=== PATIENT | female | born 1940 | race Caucasian/White ===

== ENCOUNTER 2017-09-20 17:12 | Emergency (ER) | payer MEDICARE, OTHER ==
[~2017-09-20] VITALS: Ht 162.6 cm; Wt 86.2 kg
[~2017-09-20 17:12] MED LIST: ALENDRONATE SOD70 MG PO; ASPIRIN EC81 MG PO; ASPIRIN325 MG PO; CALCIUM 500 +1 EAC2 PO; CALCIUM 600 +1 EACH PO; FLAGYL500 MG PO; K-PHOS ORIGINAL1 EA PO; LEVAQUIN500 MG PO; LISINOPRIL-HCT1 EACH PO; LOVENOX120 MG SUB-Q; MAGOX 400400 MG PO; METOPROLOL TAR100 MG PO; OCUVITE SOFTGE1 EACH PO; PERCOCET 7.5-31 EACH PO; VITAMIN D2000 UNIT PO; WARFARIN SODIUM5 MG PO; ZOFRAN ODT8 MG PO; ZOFRAN4 MG PO
[2017-09-20] MEDS ORDERED: FOSAMAX70 MG PO (17:23)
[2017-09-20] MEDS ORDERED: WARFARIN SODIUM5 MG PO (17:23)
[2017-09-20] MEDS ORDERED: BACTRIM DS TAB1 EACH PO (18:21)
[2017-09-20] MEDS ORDERED: DOXYCYCLINE HY100 MG PO (18:21)
== END 2017-09-20 18:42 | disposition home or self-care (01) ==
LOC: ED 17:12
PROC: 0HQLXZZ Repair Left Lower Leg Skin, External Approach (ICD-10-PCS; principal; 2017-09-20)
DX: S81.812A Laceration without foreign body, left lower leg, initial encounter (principal); S86.112A Strain of other muscle(s) and tendon(s) of posterior muscle group at lower leg level, left leg, initial encounter; I10 Essential (primary) hypertension; M81.0 Age-related osteoporosis without current pathological fracture; Z88.0 Allergy status to penicillin; Z91.041 Radiographic dye allergy status; Z88.5 Allergy status to narcotic agent; Z79.01 Long term (current) use of anticoagulants; Z79.899 Other long term (current) drug therapy; Z23 Encounter for immunization; W45.8XXA Other foreign body or object entering through skin, initial encounter; Y92.099 Unspecified place in other non-institutional residence as the place of occurrence of the external cause
CPT/HCPCS: 12034; 36415; 85610; 90471; 90715; 99283

== ENCOUNTER 2018-02-03 13:46 | Emergency (ER) | payer MEDICARE, OTHER ==
[~2018-02-03] VITALS: Ht 162.6 cm; Wt 86.2 kg
[~2018-02-03 13:46] MED LIST changes: +BACTRIM DS TAB1 EACH PO; +DOXYCYCLINE HY100 MG PO; +FOSAMAX70 MG PO
[2018-02-03] MEDS ORDERED: ONDANSETRON ODT8 MG PO (15:47)
[2018-02-03] MEDS ORDERED: NORCO 5-325 TA1 EACH PO (15:47)
== END 2018-02-03 16:28 | disposition home or self-care (01) ==
LOC: ED 13:46
DX: M79.605 Pain in left leg (principal); I10 Essential (primary) hypertension; M81.0 Age-related osteoporosis without current pathological fracture; Z88.0 Allergy status to penicillin; Z91.041 Radiographic dye allergy status; Z88.5 Allergy status to narcotic agent; Z79.899 Other long term (current) drug therapy; Z79.01 Long term (current) use of anticoagulants
CPT/HCPCS: 73590; 80053; 83735; 85025; 85610; 93971; 99284

== ENCOUNTER 2022-01-19 18:51 | Emergency (ER) | payer MEDICARE, OTHER ==
[~2022-01-19] VITALS: Ht 162.6 cm; Wt 86.2 kg
[~2022-01-19 18:51] MED LIST changes: +DORZOLAMIDE-TIM10 ML OU; +METOPROLOL TART50 MG PO; +NORCO 5-325 TA1 EACH PO; +ONDANSETRON ODT8 MG PO; +ROSUVASTATIN CA10 MG PO
== END 2022-01-20 00:17 | disposition short-term general hospital (02) ==
LOC: ED 18:51
DX: S16.1XXA Strain of muscle, fascia and tendon at neck level, initial encounter (principal); U07.1 COVID-19; I10 Essential (primary) hypertension; Z86.711 Personal history of pulmonary embolism; Z87.891 Personal history of nicotine dependence; Z88.0 Allergy status to penicillin; Z88.5 Allergy status to narcotic agent; Z91.048 Other nonmedicinal substance allergy status; Z79.82 Long term (current) use of aspirin; Z79.899 Other long term (current) drug therapy; Z79.01 Long term (current) use of anticoagulants; W19.XXXA Unspecified fall, initial encounter
CPT/HCPCS: 36415; 70450; 71250; 72125; 73030; 74176; 80053; 85025; 85610; 87502; 96374; 99285-25; C9803; G0480; J0131; J2405; J3430; U0003

== ENCOUNTER 2022-10-08 19:04 | Emergency (ER) | payer MEDICARE, OTHER ==
[~2022-10-08] VITALS: Ht 162.6 cm; Wt 70.3 kg
[2022-10-08] MEDS ORDERED: POTASSIUM CHLO10 MEQ PO (19:42)
[2022-10-08] MEDS ORDERED: ELIQUIS2.5 MG PO (19:43)
[2022-10-08 20:21] VITALS: BP 141/75
--- NOTE | 2022-10-08 21:44 | EKG ---
[facility] [address] [facility] [place] [address] Signed Sinus rhythm with premature atrial complexes Left axis deviation Incomplete right bundle branch block Abnormal ECG No previous ECGs available Confirmed by Lacey Duvall MD () on 10/08/2022 9:44:20 PM Electronically Signed By: LACEY DUVALL MD 10/08/22 [id number] PATIENT NAME: LUPE MEDINA AURELIANO Electrocardiogram DATE OF : 38 PHYSICIAN: LACEY DUVALL MD REPORT #: [id number] REPORT IS CONFIDENTIAL AND NOT TO BE RELEASED WITHOUT AUTHORIZATION
== END 2022-10-08 20:23 | disposition home or self-care (01) ==
LOC: ED 19:04
DX: R06.00 Dyspnea, unspecified (principal); I10 Essential (primary) hypertension; Z87.891 Personal history of nicotine dependence; Z88.0 Allergy status to penicillin; Z91.041 Radiographic dye allergy status; Z88.8 Allergy status to other drugs, medicaments and biological substances; Z88.5 Allergy status to narcotic agent; Z79.899 Other long term (current) drug therapy; Z79.01 Long term (current) use of anticoagulants
CPT/HCPCS: 36415; 71045; 80053; 83880; 84484; 85025; 85379; 85610; 85730; 93005; 93010; 99285-25

== ENCOUNTER 2023-07-11 14:21 | Emergency (ER) | payer OTHER, MEDICARE ==
[~2023-07-11] VITALS: Ht 162.6 cm; Wt 70.3 kg
[~2023-07-11 14:21] MED LIST changes: +ELIQUIS2.5 MG PO; +POTASSIUM CHLO10 MEQ PO
[2023-07-11 15:55] LABS: INFLUENZA B NAA NEGATIVE (NEGATIVE); RESPIRATORY SYNCYTIAL VIR NAA NEGATIVE (NEGATIVE)
[2023-07-11] MEDS ORDERED: LISINOPRIL10 MG PO (17:10)
[2023-07-11] MEDS ORDERED: VENTOLIN HFA18 GM (17:11)
[2023-07-11 17:42] LABS: BASOPHILS 0.1 % (0-2); EOSINOPHILS 0.1 % (0-6); HEMOGLOBIN 12.4 g/dL (12.0-18.0); LYMPHOCYTES 2.4 % (24-44); MCH 28.4 (27-36); MCHC 32.6 g/dl (30-36); MCV 87.1 fl (81-99); MONOCYTES 5.6 % (0-12); NEUTROPHILS 91.8 % (39-80); PLATELET COUNT 195 K/uL (140-440); RBC 4.36 M/ul (4.3-5.7); RDW 15.4 (10.5-15.0)
[2023-07-11] MEDS ORDERED: SODIUM CHLORIDE 0.9% 1,000 ML IV ONE (18:00)
[2023-07-11] MEDS ORDERED: ondansetron HCL 4 MG/2 ML VIAL IV ONE (18:00)
[2023-07-11 18:03] LABS: ALBUMIN 3.6 g/dL (3.4-5.0); ALBUMIN/GLOBULIN RATIO 0.92 (1.1-2.4); ANION GAP 11.9 (7-21); BILIRUBIN, TOTAL 0.7 ng/dL (0.2-1.0); BUN/CREATININE RATIO 20.23 (6.0-28.6); CALCIUM 9.3 mg/dL (8.5-10.1); CREATININE, SERUM 0.84 mg/dL (0.55-1.02); POTASSIUM 3.9 mmol/L (3.5-5.1); PROTEIN, TOTAL 7.5 g/dL (6.4-8.2)
[2023-07-11] MEDS ORDERED: ONDANSETRON 4 MG HOME.PACK SL ONE (19:45)
[2023-07-11] MEDS ORDERED: ACETAMINOPHEN 500 MG TAB PO ONE (19:45)
[2023-07-11] MEDS ORDERED: METOPROLOL TARTRATE 50 MG TAB PO ONE (19:45)
[2023-07-11] MEDS ORDERED: ONDANSETRON ODT8 MG PO (19:48)
[2023-07-11 20:24] VITALS: BP 147/62
== END 2023-07-11 20:25 | disposition home or self-care (01) ==
LOC: ED 14:21
PROVIDERS: Emergency Medicine
DX: B34.9 Viral infection, unspecified (principal); I10 Essential (primary) hypertension; M81.0 Age-related osteoporosis without current pathological fracture; Z86.711 Personal history of pulmonary embolism; Z87.891 Personal history of nicotine dependence; Z79.82 Long term (current) use of aspirin; Z79.01 Long term (current) use of anticoagulants; Z79.899 Other long term (current) drug therapy; Z88.0 Allergy status to penicillin; Z88.5 Allergy status to narcotic agent; Z88.8 Allergy status to other drugs, medicaments and biological substances; Z91.041 Radiographic dye allergy status
CPT/HCPCS: 36415; 71045; 80053; 85025; 87502; 96374; 99284-25; A9270; J2405; J7030; U0002

== ENCOUNTER 2023-10-22 10:12 | Emergency (ER) | payer MEDICARE, OTHER ==
[~2023-10-22] VITALS: Ht 162.6 cm; Wt 658.5 kg
[~2023-10-22 10:12] MED LIST changes: +LISINOPRIL10 MG PO; +VENTOLIN HFA18 GM
[2023-10-22] MEDS ORDERED: GABAPENTIN 300 MG CAP PO ONE (12:45)
[2023-10-22] MEDS ORDERED: ACETAMINOPHEN 500 MG TAB PO ONE (12:45)
[2023-10-22] MEDS ORDERED: CYCLOBENZAPRINE10 MG PO (14:13)
[2023-10-22] MEDS ORDERED: NEURONTIN300 MG PO (14:13)
[2023-10-22 14:25] VITALS: BP 151/86
== END 2023-10-22 14:25 | disposition home or self-care (01) ==
LOC: ED 10:12
DX: M54.2 Cervicalgia (principal); I10 Essential (primary) hypertension; Z87.891 Personal history of nicotine dependence; Z88.0 Allergy status to penicillin; Z91.041 Radiographic dye allergy status; Z88.5 Allergy status to narcotic agent; Z88.8 Allergy status to other drugs, medicaments and biological substances; Z79.82 Long term (current) use of aspirin; Z79.01 Long term (current) use of anticoagulants; Z79.899 Other long term (current) drug therapy
CPT/HCPCS: 72125; A9270

== ENCOUNTER 2024-07-13 20:06 | Emergency (ER) | payer MEDICARE, OTHER ==
[~2024-07-13] VITALS: Ht 162.6 cm; Wt 61.2 kg
[~2024-07-13 20:06] MED LIST changes: +CYCLOBENZAPRINE10 MG PO; +NEURONTIN300 MG PO
[2024-07-13 20:38] LABS: BASOPHILS 0.6 % (0-2); EOSINOPHILS 3.1 % (0-6); HEMATOCRIT 41.3 % (35.0-50.0); HEMOGLOBIN 13.6 g/dL (12.0-18.0); LYMPHOCYTES 24.8 % (24-44); MCH 28.5 (27-36); MCHC 32.8 g/dl (30-36); MCV 86.9 fl (81-99); MONOCYTES 11.8 % (0-12); NEUTROPHILS 59.7 % (39-80); PLATELET COUNT 228 K/uL (140-440); RBC 4.75 M/ul (4.3-5.7)
[2024-07-13 20:54] LABS: ALBUMIN 3.6 g/dL (3.4-5.0); ALBUMIN/GLOBULIN RATIO 0.92 (1.1-2.4); BILIRUBIN, TOTAL 0.3 mg/dL (0.2-1.0); BUN/CREATININE RATIO 22.5 (6.0-28.6); CALCIUM 9.4 mg/dL (8.5-10.1); CREATININE, SERUM 0.8 mg/dL (0.55-1.02); PROTEIN, TOTAL 7.5 g/dL (6.4-8.2)
[2024-07-13 20:55] LABS: INR 1.1 (0.80-1.30); PROTIME 14.2 Sec (11.2-14.2)
[2024-07-13 20:57] LABS: CORONAVIRUS COVID-19 AG NEGATIVE (NEGATIVE); INFLUENZA A AG NEGATIVE (NEGATIVE); INFLUENZA B AG NEGATIVE (NEGATIVE)
[2024-07-13] MEDS ORDERED: ALBUTEROL SULFATE 8 GM HOME.PACK INH ONE (21:15)
[2024-07-13] MEDS ORDERED: INHALER, ASSIST DEVICES 1 EACH SPACER MISC ONE (21:15)
[2024-07-13 21:20] VITALS: BP 188/94
--- NOTE | 2024-07-14 22:02 | EKG ---
[facility] [address] [facility] [place] [address] Signed Normal sinus rhythm Left axis deviation Incomplete right bundle branch block Abnormal ECG When compared with ECG of 08-OCT-2022 19:26, premature atrial complexes are no longer present Confirmed by Lacey Duvall MD () on 07/14/2024 10:02:45 PM Electronically Signed By: LACEY DUVALL MD [id number] PATIENT NAME: HSILA MEDINAYN AURELIANO Electrocardiogram DATE OF : 38 PHYSICIAN: LACEY DUVALL MD REPORT #: [id number] REPORT IS CONFIDENTIAL AND NOT TO BE RELEASED WITHOUT AUTHORIZATION
== END 2024-07-13 21:20 | disposition home or self-care (01) ==
LOC: ED 20:06
PROVIDERS: Emergency Medicine
DX: R06.02 Shortness of breath (principal); I10 Essential (primary) hypertension; Z86.711 Personal history of pulmonary embolism; Z87.891 Personal history of nicotine dependence; Z88.5 Allergy status to narcotic agent; Z88.0 Allergy status to penicillin; Z88.8 Allergy status to other drugs, medicaments and biological substances; Z91.041 Radiographic dye allergy status; Z79.899 Other long term (current) drug therapy; Z79.82 Long term (current) use of aspirin; Z79.01 Long term (current) use of anticoagulants
CPT/HCPCS: 36415; 71045; 80053; 83690; 83880; 84484; 85025; 85379; 85610; 93005; 93010; 94640; 94664; 99285-25